=== PATIENT | male | born 1970 | race Caucasian/White ===

== ENCOUNTER → 2019-12-12 | Outpatient (CLI) | payer OTHER ==
--- NOTE | 2019-12-12 15:26 | CONS ---
CONSULTATION DATE OF SERVICE: 12/12/2019 This patient is a 49-year-old gentleman who has been evaluated in [facility] for possible obstructive sleep apnea-hypopnea syndrome. HISTORY OF PRESENT ILLNESS/SLEEP-WAKE EVALUATION: Patient's sleep schedule on working days is from 11:00 p.m. until 6 or 7 a.m., and on weekends from 11 p.m. until 7 or 8 a.m. No problems with falling asleep. No TV in bedroom. Patient usually sleeps on the side position. He has loud snoring and, according to his , episodes of stopped breathing during sleep. Patient wakes up from sleep once with nocturia. No history of hypnagogic hallucinations, sleep paralysis or cataplexy. Paoli Sleepiness Scale is 4. The patient may take one nap at 5 p.m. and usually feels refreshed after a nap. No history of vivid dreams during naps. PAST MEDICAL HISTORY: Past medical history is positive for hypertension, gout, swelling of legs. PAST SURGICAL HISTORY: Left ear surgery at age 10. MEDICATIONS: Amlodipine, furosemide, potassium supplement, allopurinol. SOCIAL HISTORY: Alcohol consumption occasional. Nonsmoker. Negative for using any illegal drugs. FAMILY HISTORY: Arthritis, diabetes. REVIEW OF SYSTEMS: Awakenings from sleep, sometimes feeling tiredness and sleepiness during the day, loud snoring. PHYSICAL EXAMINATION: GENERAL: A pleasant gentleman without distress. VITAL SIGNS: BP 152/99, HR 86, RR 18, height 5 feet 8 inches, weight 412, body mass index 62.6. Temperature 98.1. Oxygen saturation at room air 95%. HEENT: PERRLA, EOMI. Evaluation of oropharynx showed tongue protrudes midline. Extremely low position of soft palate. Mallampati IV. NECK: Supple. No JVD. Thyroid is not palpable. Extremely wide neck; 21 inches in circumference. LUNGS: Clear to percussion and to auscultation. Good air exchange. No wheezing or rhonchi. HEART: S1, S2 regular. No murmurs, gallops or rubs. ABDOMEN: Obese. EXTREMITIES: One plus bilateral ankle edema. DOORS PREFITTER: Awake, alert, and oriented X3. Cranial nerves 2 to 7 intact. There is no fasciculation or atrophy. noted. No focal deficits observed. IMPRESSION: 1. Loud snoring, witnessed episodes of stopped breathing during sleep, extremely low position of soft palate, Mallampati IV, wide neck; obstructive sleep apnea-hypopnea syndrome. 2. Morbid obesity; body mass index 62.6. 3. Hypertension. 4. Gout. 5. History of swelling of the legs. 6. Status post left ear surgery at age 10. PLAN: 1. Polysomnography for evaluation of patient's breathing during sleep. 2. CPAP/BiPAP titration if sleep study confirms obstructive sleep apnea-hypopnea syndrome. 3. Preferable position during sleep on the side. 4. No driving if patient feels any sleepiness. 5. I will see patient for follow up visit to explain results of testing and following plan. Thank you very much for referring this patient for consultation. Sincerely, Ildefonso Winters MD, PhD, FAASM Diplomat of [employer] [employer] [employer] File Machine Operator of [facility] [place] MMODL / LOLAN: [id number] /
== END | disposition home or self-care (01) ==
LOC: SLEEP 09:53
PROVIDERS: ATTEND Internal Medicine
DX: G47.33 Obstructive sleep apnea (adult) (pediatric) (principal); E66.01 Morbid (severe) obesity due to excess calories; Z68.44 Body mass index [BMI] 60.0-69.9, adult; I10 Essential (primary) hypertension; M10.9 Gout, unspecified; Z87.39 Personal history of other diseases of the musculoskeletal system and connective tissue; Z98.890 Other specified postprocedural states; Z79.899 Other long term (current) drug therapy
CPT/HCPCS: 99211

== ENCOUNTER → 2019-12-25 | Outpatient (CLI) | payer OTHER ==
[~2019-12-25] MED LIST: ATROPINE SULFATE 0.1 MG/ML 10ML SYRINGE ONE; DOBUTamine DRIP for NUC MED 500 MG in DEXTROSE/WATER 1 250ML.BAG IV ONE; METOPROLOL TARTRATE 5 MG/5 ML VIAL IVP ONE
--- NOTE | 2019-12-25 12:22 | EST ---
EXERCISE STRESS DATE OF SERVICE: December 25, 2019 AGE: 49 SEX: M HT: 68" WT: 420 lbs PROTOCOL: Dobutamine stress echo STAGE: 5 DURATION OF EXERCISE: HEART RATE REST: 89 BLOOD PRESSURE REST: 135/89 MAXIMUM HEART RATE ACHIEVED: 148 MAXIMUM BLOOD PRESSURE: 173/39 85% MPHR: 144 100% MPHR: 169 METS: INDICATIONS: Chest pain. STRESS DATA: Heart rate 89, pressure is 135/90 8/89 mmHg. Baseline EKG showed sinus mechanism. Dobutamine infusion at a dose of 10 mcg/kg per minute was initiated and increased to 40 mcg/kg per minute. Max heart rate was 169, which is about 87% of maximum predicted heart rate. Maximum blood pressure was 170/39 mmHg. Clinically the patient developed discomfort in the chest, as well as discomfort in the neck. The EKG did not show any significant ST or T-wave abnormalities. ECHOCARDIOGRAM IMAGES: On echocardiogram images from parasternal long axis view, parasternal short axis view, apical 4 chamber and apical 2 chamber were obtained as the baseline images, at low dose dobutamine infusion, at peak heart rate as well as on recovery and that revealed wall motion abnormalities in the basal septum and mid inferior wall concerning for severe underlying coronary artery disease. CONCLUSION: 1. Normal EKG in response to dobutamine. 2. Abnormal echocardiogram in response to dobutamine with evidence of wall motion abnormalities concerning for severe underlying coronary artery disease. MMODL / IJN: [id number] /
--- NOTE | 2019-12-25 12:49 | US ---
EXAMINATION TYPE: US venous doppler duplex LE LT DATE OF EXAM: 12/25/2019 12:24 PM COMPARISON: NONE CLINICAL HISTORY: R22.42Localized swelling, mass and lump, l, R94.31. Left leg swelling x 1 year SIDE PERFORMED: Left TECHNIQUE: The lower extremity deep venous system is examined utilizing real time linear array sonog hector with graded compression, doppler sonography and color-flow sonography. VESSELS IMAGED: External Iliac Vein (EIV) Common Femoral Vein Deep Femoral Vein Greater Saphenous Vein * Femoral Vein Popliteal Vein Small Saphenous Vein * Proximal Calf Veins (* superficial vessels) Left Leg: Appears negative for DVT IMPRESSION: No evidence for DVT.
== END | disposition home or self-care (01) ==
LOC: RADNMMAIN 10:00
PROVIDERS: ATTEND Family Medicine
DX: R94.31 Abnormal electrocardiogram [ECG] [EKG] (principal)
CPT/HCPCS: 93971; C8930; J1250; Q9950; 93351

== ENCOUNTER → 2020-06-12 | Outpatient (CLI) | payer OTHER ==
--- NOTE | 2020-06-12 17:40 | SFUN ---
SLEEP CENTER FOLLOW UP NOTE DATE OF SERVICE: 06/12/2020 This is a 50-year-old gentleman who has been followed in Sleep Center for treatment of obstructive sleep apnea-hypopnea syndrome. Patient continues to use his CPAP equipment every night for the whole night. No significant problems with the mask fitting, pressure or humidification. Vincent Sleepiness Scale today is zero. I checked his CPAP unit. CPAP pressure is 9 cm of water, mask fit 99%. The patient is using it every night. Average usage is 6.3 hours. Apnea-hypopnea index is 1.6, which is perfect. Since his previous visit, the patient's weight has changed. He has lost a total of around 30 pounds according to him; by my information from the chart, it is about 8 pounds since his previous visit. MEDICATIONS: 1. Aspirin 81 mg once a day. 2. Allopurinol 100 mg once a day. 3. Amlodipine 5 mg once a day. 4. Furosemide 20 mg once a day. 5. Isosorbide 30 mg once a day. PHYSICAL EXAMINATION: GENERAL: A pleasant patient in no distress. VITAL SIGNS: BP 155/82, HR 86, RR 20, height 5 feet 8 inches, weight 392, BMI 59.6, temperature 97.9, oxygen saturation at room air 95%. HEENT: PERRLA, EOMI. Evaluation of oropharynx showed tongue protrudes midline. Extremely low position of soft palate. Mallampati IV. NECK: Supple. No JVD. Thyroid is not palpable. LUNGS: Clear to percussion and to auscultation. Good air exchange. No wheezing or rhonchi. HEART: S1, S2 regular. No murmurs, gallops or rubs. ABDOMEN: Obese. EXTREMITIES: No clubbing or cyanosis. LANDSCAPE AND YARDWORK LABORER: Awake, alert, and oriented X3. Cranial nerves 2 to 7 intact. There is no fasciculation or atrophy. noted. No focal deficits observed. IMPRESSION: 1. Obstructive sleep apnea-hypopnea syndrome. Patient demonstrated great compliance with treatment, benefitting from treatment. 2. Obesity. BMI 59.6. 3. Hypertension. 4. History of gout. PLAN: 1. Patient will continue to use PAP equipment every night for the whole night. 2. Sleep hygiene with regular time in bed for at least 7-1/2 to 8 hours. 3. Precautions related to driving. No driving if feeling sleepiness. 4. I will maintain all necessary prescription for PAP supplies including mask, tube, filters. 5. Watching weight. 6. No driving if feeling sleepiness. 7. Follow-up visit in 6 months or earlier if patient has any problems. Thank you very much for allowing me to participate in the management of your patient. Sincerely, Ildefonso Winters MD, PhD, FAASM Diplomat of [employer] Dough Cutting Machine Operator of [facility] [place] MMODL / IJN: [id number] /
== END | disposition home or self-care (01) ==
LOC: SLEEP 15:25
PROVIDERS: ATTEND Internal Medicine
DX: G47.33 Obstructive sleep apnea (adult) (pediatric) (principal); I10 Essential (primary) hypertension; E66.9 Obesity, unspecified; Z99.89 Dependence on other enabling machines and devices; Z79.82 Long term (current) use of aspirin; Z79.899 Other long term (current) drug therapy; Z68.43 Body mass index [BMI] 50.0-59.9, adult; Z87.39 Personal history of other diseases of the musculoskeletal system and connective tissue

== ENCOUNTER → 2020-10-16 | Outpatient (CLI) | payer OTHER | END | disposition home or self-care (01) | LOC: LABWHC1 16:47 | PROVIDERS: ATTEND Family Medicine | DX: R05 Cough (principal); R09.81 Nasal congestion | CPT/HCPCS: U0003; C9803 ==